=== PATIENT | female | born 1995 | race Hispanic/Latino ===

== ENCOUNTER 2018-06-03 22:16 | Emergency (ER) | payer OTHER, BC ==
[2018-06-03 22:37] VITALS: RESP 16
[2018-06-03] MEDS ORDERED: Iohexol 240 (50 ml) PO ONE (23:07)
--- NOTE | 2018-06-03 23:20 | ED PDOC ---
HPI: Abdomen Time Seen by Provider: 06/03/18 22:38 Chief Complaint (Nursing): Abdominal Pain Chief Complaint (Provider): abdominal pain History Per: Patient History/Exam Limitations: no limitations Onset/Duration Of Symptoms: Days (> 1 month), Waxing/Waning Location Of Pain/Discomfort: RLQ, LLQ, Suprapubic Quality Of Discomfort: Cramping, "Pain" Associated Symptoms: Back Pain Additional Complaint(s): 23 y/o female presents for evaluation of intermittent lower abdominal pain for a little over one month. Patient states she is being followed by her primary doctor and public health technologist for this; but reports tonight after having bowel movement she noticed bright red blood mixed in with the stool and on the tissue after wiping. Admits to more frequent bowel movements, soft alternating with hard stool, but denies diarrhea. Denies fever, headache, dizziness, nausea/vomiting , chest pain, shortness of breath, palpitations, urinary symptoms, recent travel , sick contacts. Past Medical History Reviewed: Historical Data, Nursing Documentation, Vital Signs Vital Signs: Last Vital Signs Temp 98.2 F 06/03/18 22:33 Pulse 87 06/03/18 22:33 Resp 16 06/03/18 22:33 BP 124/58 L 06/03/18 22:33 Pulse Ox 99 06/03/18 23:21 - Medical History PMH: No Chronic Diseases - Surgical History Surgical History: No Surg Hx - Family History Family History: States: No Known Family Hx - Home Medications Home Medications: Ambulatory Orders Medication Instructions Recorded Docusate Sodium [Colace] 100 mg PO DAILY #15 capsule 06/04/18 Naproxen [Naprosyn] 500 mg PO Q12 PRN #14 tablet 06/04/18 - Allergies Allergies/Adverse Reactions: Allergies Allergy/AdvReac Type Severity Reaction Status Date / Time No Known Allergies Allergy Verified 06/03/18 22:33 Review of Systems ROS Statement: Except As Marked, All Systems Reviewed And Found Negative Gastrointestinal: Positive for: Abdominal Pain, Hematochezia Physical Exam - Reviewed Nursing Documentation Reviewed: Yes Vital Signs Reviewed: Yes - Physical Exam Appears: Positive for: Well, Non-toxic, No Acute Distress Head Exam: Positive for: ATRAUMATIC, NORMAL INSPECTION, NORMOCEPHALIC Skin: Positive for: Normal Color Eye Exam: Positive for: Normal appearance ENT: Positive for: Normal ENT Inspection Cardiovascular/Chest: Positive for: Regular Rate, Rhythm Respiratory: Positive for: Normal Breath Sounds Gastrointestinal/Abdominal: Positive for: Normal Exam, Bowel Sounds, Soft. Negative for: Tenderness Back: Positive for: Normal Inspection Extremity: Positive for: Normal ROM Neurologic/Psych: Positive for: Alert, Oriented (x3) - Laboratory Results Result Diagrams: 06/03/18 23:28 06/03/18 23:28 - ECG O2 Sat by Pulse Oximetry: 99 - Progress ED Course And Treament: labs, urine, CT abd/pelvis EXAM: CT Abdomen and Pelvis With Intravenous Contrast CLINICAL HISTORY: 23 years old, female; Pain; Abdominal pain; Localized; Lower; Additional info: Lower abd pain, blood in stool TECHNIQUE: Axial computed tomography images of the abdomen and pelvis with intravenous contrast. All CT scans at this facility use at least one of these dose optimization techniques: automated exposure control; mA and/or kV adjustment per patient size (includes targeted exams where dose is matched to clinical indication); or iterative reconstruction. Coronal and sagittal reformatted images were created and reviewed. CONTRAST: 90 mL of [id number] was administered intravenously. COMPARISON: No relevant prior studies available. FINDINGS: Lung bases: Unremarkable. No mass. No consolidation. ABDOMEN: Liver: Unremarkable. No mass. Gallbladder and bile ducts: Unremarkable. No calcified stones. No ductal dilation. Pancreas: Unremarkable. No mass. No ductal dilation. Spleen: Unremarkable. No splenomegaly. Adrenals: Unremarkable. No mass. Kidneys and ureters: Unremarkable. No solid mass. No hydronephrosis. Stomach and bowel: Moderate fecal retention in the colon consistent with constipation. No obstruction. No mucosal thickening. PELVIS: Appendix: The appendix is not well-seen. Bladder: Unremarkable. No mass. Reproductive: Recently ruptured left ovarian cyst or follicle. ABDOMEN and PELVIS: Intraperitoneal space: Unremarkable. No free air. No significant fluid collection. Bones/joints: No acute fracture. No dislocation. Soft tissues: Unremarkable. Vasculature: Unremarkable. No abdominal aortic aneurysm. Lymph nodes: Unremarkable. No enlarged lymph nodes. IMPRESSION: 1. Moderate fecal retention in the colon consistent with constipation. 2. Recently ruptured left ovarian cyst or follicle. Patient educated on findings, discharged with rx Naproxen, colace Advised follow up PMD for scheduled u/s. Follow up [employer] Return precautions given Patient demonstrates full understanding of discharge instructions Patient requires no further intervention in the ED and is stable for discharge at this time Disposition - Clinical Impression Clinical Impression: Ovarian cyst, Abdominal pain, Constipation, Blood in stool - Patient ED Disposition Is Patient to be Admitted: No Counseled Patient/Family Regarding: Studies Performed, Diagnosis, Need For Followup, Rx Given - Disposition Disposition: Routine/Home Disposition Time: 02:54 Condition: IMPROVED Prescriptions: Docusate Sodium [Colace] 100 mg PO DAILY #15 capsule Naproxen [Naprosyn] 500 mg PO Q12 PRN #14 tablet PRN Reason: Pain, Moderate (4-7) Instructions: Ovarian Cysts, Constipation in Adults, Acute Abdomen (Belly Pain) , Adult (DC), Bloody Stools Forms: [employer] (Khmer)
[2018-06-03 23:33] LABS: BASO # 0.1 K/uL (0.0-0.2); BASO % 0.6 % (0.0-2.0); EOS # 0.4 K/uL (0.0-0.7); EOS % 4.2 % (0.0-4.0); HEMOGLOBIN 14.3 g/dL (12.0-16.0); LYMPH # 2.9 K/uL (1.0-4.3); MEAN CELL VOLUME 95.2 fl (81.0-99.0); MEAN CORPUSCULAR HEMOGLOBIN 32.2 pg (27.0-31.0); MEAN CORPUSCULAR HGB CONC 33.8 g/dL (33.0-37.0); MONO # 0.7 K/uL (0.0-0.8); MONO % 8.6 % (0.0-10.0); NEUT # 4.4 K/uL (1.8-7.0); NEUT % 52.6 % (50.0-75.0); NRBC % 0.1 % (0.0-0.0); RBC 4.44 Mil/uL (3.80-5.20); RED CELL DISTRIBUTION WIDTH 12.7 % (11.5-14.5); WHITE BLOOD COUNT 8.4 K/uL (4.8-10.8)
[2018-06-03 23:42] LABS: ALB/GLOB RATIO 1.4 (1.0-2.1); ALBUMIN 4.2 g/dL (3.5-5.0); ALT/SGPT 24 U/L (9-52); AST/SGOT 25 U/L (14-36); BLOOD UREA NITROGEN 15 mg/dl (7-17); CALCIUM 9.4 mg/dL (8.4-10.2); GFR NON-AFRICAN AMERICAN > 60
[2018-06-03 23:55] LABS: URINE AMORPHOUS SEDIMENT OCC /ul (<OCC); URINE BACTERIA RARE (<OCC); URINE BILIRUBIN NEGATIVE (NEGATIVE); URINE BLOOD NEGATIVE (NEGATIVE); URINE CLARITY TURBID (Clear); URINE COLOR YELLOW (YELLOW); URINE GLUCOSE (UA) NEG (Normal); URINE LEUKOCYTE ESTERASE NEG Leu/uL (Negative); URINE PROTEIN NEGATIVE (NEGATIVE); URINE UROBILINOGEN 0.2-1.0 mg/dL (0.2-1.0)
[2018-06-04] MEDS ORDERED: Sodium Chloride 0.9% 50 ML IV ONE (01:45)
[2018-06-04] MEDS ORDERED: Iohexol 300 100 ML IJ ONE (01:45)
[2018-06-04 04:48] VITALS: BP 117/71; PULSE 69; TEMP 98.4; O2SAT 98
--- NOTE | 2018-06-04 10:36 | CT ---
Date of service: 06/04/2018 PROCEDURE: CT Abdomen and Pelvis with contrast HISTORY: lower abd pain, blood in stool COMPARISON: None. TECHNIQUE: Contrast dose: 90 mL Omnipaque 300 Radiation dose: Total exam DLP = 277.8 mGy-cm. This CT exam was performed using one or more of the following dose reduction techniques: Automated exposure control, adjustment of the mA and/or kV according to patient size, and/or use of iterative reconstruction technique. FINDINGS: LOWER THORAX: Unremarkable. LIVER: Unremarkable. No gross lesion or ductal dilatation. GALLBLADDER AND BILE DUCTS: Unremarkable. PANCREAS: Unremarkable. No gross lesion or ductal dilatation. SPLEEN: Unremarkable. ADRENALS: Unremarkable. No mass. KIDNEYS AND URETERS: Unremarkable. No hydronephrosis. No solid mass. VASCULATURE: Unremarkable. No aortic aneurysm. BOWEL: Prominent matter retained colonic stool. No obstruction. No gross mural thickening. APPENDIX: Normal appendix. PERITONEUM: Unremarkable. No free fluid. No free air. LYMPH NODES: Unremarkable. No enlarged lymph nodes. BLADDER: Unremarkable. REPRODUCTIVE: Left ovarian 2.0 x 1.8 cm involuting corpus luteal follicle. BONES: No acute fracture. OTHER FINDINGS: None. IMPRESSION: Involuting left corpus luteal follicle. Prominent amount of retained colonic stool.
== END 2018-06-04 03:22 | disposition home or self-care (01) ==
LOC: H.ER 22:16
DX: N83.202 Unspecified ovarian cyst, left side (principal); K59.00 Constipation, unspecified; R10.9 Unspecified abdominal pain; K92.1 Melena
CPT/HCPCS: 74177; 80053; 81003; 81025; 85025; 99284; G0328; Q9966; Q9967